=== PATIENT | male | born 1995 | race Caucasian/White ===

== ENCOUNTER → 2019-02-18 | Outpatient (CLI) | payer BC ==
--- NOTE | 2019-02-18 17:11 | RAD ---
CHEST PA LATERAL Clinical indications: Cough. Comparison: None available. Findings: No acute lung infiltrate or pleural effusion or pulmonary edema or lung mass or pneumothorax is seen. The heart size, pulmonary vasculature, mediastinum and both isael are unremarkable. The osseous structures appear intact. Impression: No acute radiographic abnormality is seen. Electronically signed by: Anthony Miles MD (02/18/2019 5:08 PM) [id number]
== END | disposition home or self-care (01) ==
LOC: RAD 16:51
PROVIDERS: ATTEND Registered Nurse
DX: R05 Cough (principal)
CPT/HCPCS: 71046